=== PATIENT | female | born 1975 | race Hispanic/Latino ===

== ENCOUNTER 2020-06-11 17:45 | Emergency (ER) | payer SELFPAY ==
[~2020-06-11] VITALS: Ht 165.1 cm; Wt 131.1 kg
[~2020-06-11 17:45] MED LIST: CITALOPRAM HBR20 MG PO
[2020-06-11] MEDS ORDERED: KETOROLAC TROMETHAMINE 30 MG/ML VIAL IV STA (18:09)
[2020-06-11] MEDS ORDERED: SODIUM CHLORIDE 0.9% 1000ML 1,000 ML IV STA (18:09)
[2020-06-11] MEDS ORDERED: ONDANSETRON HCL INJ 2MG/ML 2ML 2 MG/ML VIAL IV STA (18:12)
[2020-06-11] MEDS ORDERED: LIDOCAINE 4% PATCH TP ONE (18:35)
[2020-06-11 18:55] LABS: BASOPHILS # (AUTO) 0.1 (0.0-0.1); BASOPHILS % 0.5 % (0.0-1.0); EOSINOPHILS # (AUTO) 0.3 (0.0-0.4); EOSINOPHILS % 2.6 % (0.0-6.0); HEMATOCRIT 43.2 % (34.2-44.1); HEMOGLOBIN 14.5 g/dL (12.0-16.0); LYMPHOCYTES # (AUTO) 4.5 (1.0-3.2); LYMPHOCYTES % 40.7 % (18.0-39.1); MEAN CORPUSCULAR HGB CONC 33.6 g/dL (31-35); MEAN CORPUSCULAR VOLUME 89.4 fL (81-99); MONOCYTES # (AUTO) 0.7 (0.2-0.8); NEUTROPHILS # (AUTO) 5.5 (2.1-6.9); NEUTROPHILS % 49.9 % (38.7-80.0); PLATELET COUNT 398 x10e3/uL (140-360); RED BLOOD COUNT 4.83 x10e6/uL (3.6-5.1); RED CELL DISTRIBUTION WIDTH 12.2 % (11.7-14.4)
[2020-06-11 19:15] LABS: ALANINE AMINOTRANSFERASE 23 IU/L (0-55); ALBUMIN 3.9 g/dL (3.5-5.0); ALBUMIN/GLOBULIN RATIO 0.9 (0.8-2.0); ALKALINE PHOSPHATASE 122 IU/L (40-150); ANION GAP 15.1 mmol/L (8-16); BLOOD UREA NITROGEN 12 mg/dL (7-26); BUN/CREATININE RATIO 16 (6-25); CALCIUM 9.2 mg/dL (8.4-10.2); CARBON DIOXIDE 26 mmol/L (22-29); CHLORIDE 102 mmol/L (98-107); CREATINE KINASE 52 IU/L (29-168); CREATININE, SERUM 0.76 mg/dL (0.57-1.11); EST GLOMERULAR FILTRATION RATE > 60 ML/MIN (60-); GLUCOSE 319 mg/dL (74-118); POTASSIUM 4.1 mmol/L (3.5-5.1); SODIUM 139 mmol/L (136-145)
[2020-06-11] MEDS ORDERED: IOPAMIDOL 370 MG/ML 200 ML INFUS..BTL INJ ONE (19:34)
[2020-06-11] MEDS ORDERED: SODIUM CHLORIDE 0.9% 50ML 50 ML ONE (19:34)
[2020-06-11] MEDS ORDERED: HYDROCODONE/APAP 10MG-325MG TAB PO ONE (21:15)
[2020-06-11] MEDS ORDERED: HYDROCODONE/APAP 10MG-325MG TAB ONE (21:21)
== END 2020-06-11 21:47 | disposition home or self-care (01) ==
LOC: ER 18:08
DX: R10.11 Right upper quadrant pain (principal); R11.2 Nausea with vomiting, unspecified; E11.65 Type 2 diabetes mellitus with hyperglycemia; E11.40 Type 2 diabetes mellitus with diabetic neuropathy, unspecified; F41.9 Anxiety disorder, unspecified
CPT/HCPCS: 36415; 71045; 74177; 80053; 82550; 82553; 83690; 84484; 85025; 96374; 96375; 99284; J1885; J2405; J7030; Q9967

== ENCOUNTER 2022-02-23 10:49 | Emergency (ER) | payer SELFPAY ==
[~2022-02-23] VITALS: Ht 165.1 cm; Wt 104.3 kg
[2022-02-23] MEDS ORDERED: ACETAMINOPHEN500 MG PO (11:57)
[2022-02-23] MEDS ORDERED: IBUPROFEN200 MG PO (11:57)
[2022-02-23] MEDS ORDERED: CEFDINIR300 MG PO (11:57)
== END 2022-02-23 12:12 | disposition home or self-care (01) ==
LOC: FSED 11:12
DX: R50.9 Fever, unspecified (principal); J02.0 Streptococcal pharyngitis; R05.9 Cough, unspecified; R52 Pain, unspecified; E11.40 Type 2 diabetes mellitus with diabetic neuropathy, unspecified; F41.9 Anxiety disorder, unspecified; F17.210 Nicotine dependence, cigarettes, uncomplicated
CPT/HCPCS: 81003; 83518; 87400; 99283

== ENCOUNTER 2022-09-13 09:52 | Emergency (ER) | payer OTHER ==
[~2022-09-13] VITALS: Ht 167.6 cm; Wt 97.5 kg
[~2022-09-13 09:52] MED LIST changes: +ACETAMINOPHEN500 MG PO; +CEFDINIR300 MG PO; +IBUPROFEN200 MG PO
[2022-09-13] MEDS ORDERED: SODIUM CHLORIDE 0.9% 1000ML 1,000 ML IV STA ×2 (10:09→11:33)
[2022-09-13] MEDS ORDERED: ONDANSETRON HCL INJ 2MG/ML 2ML 2 MG/ML VIAL IV STA (10:09)
[2022-09-13] MEDS ORDERED: SODIUM CHLORIDE 0.9% 1000ML 1,000 ML ONE ×2 (10:34→11:35)
[2022-09-13] MEDS ORDERED: ONDANSETRON HCL INJ 2MG/ML 2ML 2 MG/ML VIAL ONE (10:34)
[2022-09-13] MEDS ORDERED: IOPAMIDOL 370 MG/ML 100 ML INFUS..BTL INJ ONE (10:38)
[2022-09-13] MEDS ORDERED: FAMOTIDINE 20 MG/2 ML VIAL IV STA (11:33)
[2022-09-13] MEDS ORDERED: FAMOTIDINE 20 MG/2 ML VIAL IV ONE (11:35)
[2022-09-13 11:43] VITALS: O2SAT 97
[2022-09-13] MEDS ORDERED: ONDANSETRON ODT4 MG PO (12:40)
[2022-09-13] MEDS ORDERED: CIPROFLOXACIN500 MG PO (12:40)
[2022-09-13] MEDS ORDERED: PROTONIX20 MG PO (12:40)
[2022-09-13] MEDS ORDERED: METRONIDAZOLE500 MG PO (12:40)
== END 2022-09-13 12:53 | disposition home or self-care (01) ==
LOC: FSED 10:08
DX: R10.13 Epigastric pain (principal); K52.9 Noninfective gastroenteritis and colitis, unspecified; R11.2 Nausea with vomiting, unspecified; E11.65 Type 2 diabetes mellitus with hyperglycemia; F41.9 Anxiety disorder, unspecified; F17.210 Nicotine dependence, cigarettes, uncomplicated
CPT/HCPCS: 74177; 93005; 99284; J2405; J7030; Q9967

== ENCOUNTER 2023-05-16 18:04 | Emergency (ER) | payer BC, OTHER ==
[~2023-05-16] VITALS: Ht 167.6 cm; Wt 89.6 kg
[~2023-05-16 18:04] MED LIST changes: +CIPROFLOXACIN500 MG PO; +CYCLOBENZAPRINE5 MG PO; +KETOROLAC TROME10 MG PO; +METRONIDAZOLE500 MG PO; +ONDANSETRON ODT4 MG PO; +PROTONIX20 MG PO
[2023-05-16 19:33] VITALS: O2SAT 98
[2023-05-16] MEDS ORDERED: ONDANSETRON ODT4 MG PO (19:49)
[2023-05-16] MEDS ORDERED: NASACORT16.9 ML (19:49)
[2023-05-16] MEDS ORDERED: DIPHENHYDRAMINE25 MG PO (19:49)
[2023-05-16] MEDS ORDERED: HYDROCODON-ACE1 EAC9 (19:56)
[2023-05-16] MEDS ORDERED: LISINOPRIL10 MG PO (19:56)
[2023-05-16] MEDS ORDERED: CLONAZEPAM1 MG PO (19:56)
[2023-05-16] MEDS ORDERED: NEURONTIN300 MG PO (19:56)
[2023-05-16] MEDS ORDERED: LEVEMIR100 UNIT/1 SQ (19:56)
[2023-05-16] MEDS ORDERED: FLUOXETINE HCL20 MG PO (19:56)
[2023-05-16] MEDS ORDERED: QUETIAPINE FUM100 MG PO (19:56)
[2023-05-16] MEDS ORDERED: ACTOS15 MG PO (19:56)
[2023-05-16] MEDS ORDERED: ROPINIROLE HCL1 MG PO (19:56)
[2023-05-16] MEDS ORDERED: AMOXICILLIN500 M1 PO (20:14)
[2023-05-16] MEDS ORDERED: TYLENOL325 MG PO (20:17)
[2023-05-16] MEDS ORDERED: CEFTRIAXONE 1 GM VIAL ONE (20:17)
[2023-05-16] MEDS: CEFTRIAXONE 1 GM VIAL IM ONE (21:06)
== END 2023-05-16 21:16 | disposition home or self-care (01) ==
LOC: FSED 18:10
DX: R05.9 Cough, unspecified (principal); J02.0 Streptococcal pharyngitis; J30.9 Allergic rhinitis, unspecified
CPT/HCPCS: 99283; J0696